=== PATIENT | female | born 1985 | race African-American/Black ===

== ENCOUNTER 2017-12-21 06:42 | Emergency (ER) | payer SELFPAY ==
[~2017-12-21] VITALS: Ht 170.2 cm; Wt 120.0 kg
[2017-12-21] MEDS ORDERED: MOTRIN800 MG PO (09:47)
[2017-12-21] MEDS ORDERED: FLEXERIL10 MG PO (09:47)
[2017-12-21 10:18] VITALS: BP 138/86
== END 2017-12-21 10:18 | disposition home or self-care (01) ==
LOC: EME 06:42
DX: S39.012A Strain of muscle, fascia and tendon of lower back, initial encounter (principal); Y93.H1 Activity, digging, shoveling and raking; F17.200 Nicotine dependence, unspecified, uncomplicated
CPT/HCPCS: 72100; 99281; 99283; J1885